=== PATIENT | male | born 1940 | race Caucasian/White ===

== ENCOUNTER 2024-09-08 19:34 | Emergency (ER) | payer OTHER, MEDICARE ==
--- OUTSIDE RECORDS SUMMARY | 2024-09-08 19:37 | XMS REPORT | Clinical Summary ---
Author Name Unknown Organization [facility] Cancer Page Address [address] [place] [address] Care Team Providers Care Paediatric Thoracic Physician Name Role Phone Debbie Chase MD Primary Care Provider [phone] Dinesh Sequeira MD Unavailable + [phone] Bryan Spear MD Unavailable [email or web address] No known active allergies Medications hydrALAZINE (APRESOLINE) 50 mg tablet Take 50 mg by mouth 3 (three) times a day. Active levothyroxine (SYNTHROID, LEVOTHROID) 75 mcg tablet Take 75 mcg by mouth daily. Active losartan-hydrochlorot hiazide (HYZAAR) 100-25 mg per tablet Take 1 tablet by mouth daily. Active simvastatin (ZOCOR) 40 mg tablet Take 40 mg by mouth at bedtime. Active nisoldipine (SULAR) 17 mg 24 hr tablet Take 17 mg by mouth daily. Active allopurinol (ZYLOPRIM) 100 mg tablet Take 100 mg by mouth daily. Active fenofibrate nanocrystallized (TRICOR) 48 mg tablet Take 48 mg by mouth at bedtime. Active OMEPRAZOLE ORAL Take 20.6 mg by mouth daily. Active cholecalciferol, vitamin D3, (VITAMIN D3) 1,000 unit capsule Take 2,000 Units by mouth daily. Active DOCOSAHEXANOIC ACID/EPA (FISH OIL ORAL) Take 1,200 mg by mouth twice daily. Active magnesium oxide (MAOX) 400 mg tablet Take 800 mg by mouth daily. Active aspirin 81 mg EC tablet Take 81 mg by mouth once. Active carvedilol (COREG) 25 mg tablet Take 25 mg by mouth twice daily. 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 01/09/2017 Elevated prostate specific antigen (PSA) 017 Enlarged prostate with LUTS 12/16/2016 Surgical History Surgery Date Site/Laterality Comments APPENDECTOMY COLONOSCOPY HERNIA REPAIR 08/21/1984 - 08/20/1985 left groin PROSTATE SURGERY early TURP CHOLECYSTECTOMY 08/21/2001 - 08/20/2002 UPPER GASTROINTESTINAL ENDOSCOPY CARDIAC SURGERY Murmur repair Medical History Medical History Date Comments Hypertension late Irregular heart beat Hearing loss 2007 from anual check s at work Gallstone 2001 Gall bladder rem ludwig Renal stone 1973 Disorder of prostate Hypothyroidism Family History Medical History Relation Name Comments Diabetes Brother 1 Esophageal cancer Brother 1 Hypertension Brother 2 Diabetes Mother Diabetes Sister 1 Hypertension Sister 2 Relation Name Status Comments Brother 1 Brother 2 Mother Sister 1 Sister 2 Social History Tobacco Use Types Packs/Day Years Used Date Smoking Tobacco: Never Smokeless Tobacco: Never Alcohol Use Standard Drinks/Week Comments Yes 0 (1 standard drink = 0.6 oz pur e alcohol) 0ccasional glass of wine. Sex and Gender Information Value Date Recorded Sex Assigned at Not on file Legal Sex Male 3:50 PM CDT Gender Identity Not on file Sexual Orientation Not on file Obstetrics History Plan of Treatment Health Maintenance Due Date Last Done Comments Pneumococcal Vaccine: 65+ Years (1 of 1 - PCV) 003 COVID-19 Vaccine (2023- season) 2024 Influenza Vaccine (#1) 2024 Insurance MEDICARE PART A AND B AARP-SECONDARY ONLY MEDICARE PART A AND B AARP-SECONDARY [facility] Address[facility] [id number] [place] [address] MEDICARE PART A AND B AARP-SECONDARY ONLY Care Teams Paediatric Thoracic Physician Relationship Specialty Start Date End Date Debbie Chase MD [address] [place] [address] [email or web address] PCP - General Urology 11/24/16 [place] [id number] [address] [id number] [email or web address] PCP - External Referring Urology 11/24/16 [place] [id number] [address] [email or web address] Family Practice 10/19/17
--- NOTE | 2024-09-08 19:57 | EDPHYS ---
Physician Documentation [facility] Name: Nathanael Rodriguez Age: 84 yrs Sex: Male : 1940 Arrival Date: 09/08/2024 Time: 19:34 Bed 20 Private MD: ED Physician Vineet Cook HPI: 09/08 19:55 This 84 yrs old Male presents to ER via Ambulatory with complaints of Toe pain. sb4 19:55 right 4th toe pain x 1 week. denies injury. thinks it is from rubbing together with his sb4 3rd toe. states he has taken tylenol and put antibiotic cream on it without any relief. no fevers. denies any history of diabetes. Historical: - Allergies: 19:49 No Known Allergies; cp4 - PMHx: 19:49 GERD; Hypercholesterolemia; Hypertensive disorder; Hypothyroidism; PVC; cp4 - PSHx: 19:49 Appendectomy; Cholecystectomy; left inguinal hernia repair; Tonsillectomy; TURP; cp4 - Immunization history:: Adult Immunizations up to date. - Infectious Disease History:: Denies. - Social history:: Smoking status: Patient denies any tobacco usage or history of. ROS: 19:55 Constitutional: Negative for fever, chills, and weight loss, sb4 19:55 MS/extremity: Positive for pain, swelling, tenderness, of the plantar aspect of right fourth toe, 19:55 All other systems are negative, Exam: 19:55 Constitutional: This is a well developed, well nourished patient who is awake, alert, sb4 and in no acute distress. Head/Face: Normocephalic, atraumatic. Eyes: Extra-ocular motions intact. Periorbital areas with no swelling, redness, or edema. ENT: Mucous membranes moist. 19:55 Skin: cellulitis, that is moderate, on the plantar aspect of right fourth toe, Vital Signs: 19:44 BP 184 / 96; Pulse 83; Resp 18; Temp 98.2; Pulse Ox 98% ; Weight 74.84 kg; Height 5 ft. cp4 10 in. ; Pain 10/10; 20:36 BP 160 / 88; Pulse 90; Resp 20; Temp 98; Pulse Ox 100% ; kj2 19:44 Body Mass Index 23.67 (74.84 kg, 177.8 cm) cp4 19:44 Pain Scale: Adult cp4 MDM: 19:40 Medical Screening Exam initiated sb4 19:56 Data reviewed: vital signs, nurses notes, and as a result, I will discharge patient. sb4 Counseling: I had a detailed discussion with the patient and/or guardian regarding the historical points, exam findings, and any diagnostic results supporting the discharge/admit diagnosis, the need for outpatient follow up, a radio disc jockey, to return to the emergency department if symptoms worsen or persist or if there are any questions or concerns that arise at home. 09/08 19:54 Order name: Wound Care; Complete Time: 20:38 sb4 09/08 19:54 Order name: Orthopedic shoe; Complete Time: 20:37 sb4 Administered Medications: 20:37 Drug: Cephalexin PO 500 mg PO once Route: PO; kj2 20:37 Follow up: Response: Medication administered at discharge. kj2 Disposition: 09/09 00:25 Co-signature as Attending Physician, Vineet Cook MD I agree with the assessment sp4 and plan of care. I reviewed the patient's care provided by the Advanced Practice Provider and agree with the diagnosis and treatment plan. Disposition Summary: 09/08/24 19:57 Discharge Ordered Notes: Location: Home sb4 Problem: new sb4 Symptoms: have improved sb4 Condition: Stable sb4 Diagnosis - Cellulitis of right toe sb4 Followup: sb4 - With: Natanael Anderson DPM - When: 1 week - Reason: Recheck today's complaints, Re-evaluation by your physician Discharge Instructions: - Discharge Summary Sheet sb4 - Cellulitis, Adult sb4 Forms: - Antibiotic Education sb4 - Patient Portal Instructions sb4 - Leadership Thank You Letter sb4 Prescriptions: - Cephalexin 500 mg Oral Capsule - take 1 capsule ORAL route every 8 hours for 10 days; 30 capsule; Refills: 0, sb4 Product Selection Permitted - Tramadol 50 mg Oral Tablet - take 1 tablet ORAL route every 8 hours as needed; 12 tablet; Refills: 0, sb4 Product Selection Permitted Signatures: Parisa Puente PA-C PA-C sb4 Vineet Cook MD MD sp4 Mary Kate Fitzgerald cp4 India Roberts RN RN kj2
--- NOTE | 2024-09-08 19:57 | ER ---
Nurse's Notes [facility] Name: Nathanael Rodriguez Age: 84 yrs Sex: Male : 1940 Arrival Date: 09/08/2024 Time: 19:34 Bed 20 Private MD: Diagnosis: Cellulitis of right toe Presentation: 09/08 19:44 Chief complaint: Patient states: right fourth toe pain. States he thought he bruised it cp4 but has not gotten any better. Coronavirus screen: Client denies travel out of the [place] in the last 14 days. At this time, the client does not indicate any symptoms associated with coronavirus-19. Ebola Screen: Patient negative for fever greater than or equal to 101.5 degrees Fahrenheit, and additional compatible Ebola Virus Disease symptoms Patient denies exposure to infectious person. Patient denies travel to an Ebola-affected area in the 21 days before illness onset. No symptoms or risks identified at this time. Initial Sepsis Screen: Does the patient meet any 2 criteria? No. Patient's initial sepsis screen is negative. Does the patient have a suspected source of infection? No. Patient's initial sepsis screen is negative. Risk Assessment: Do you want to hurt yourself or someone else? Patient reports no desire to harm self or others. Onset of symptoms is unknown. 19:44 Method Of Arrival: Ambulatory cp4 19:44 Acuity: THEA 4 cp4 Triage Assessment: 19:49 General: Appears in no apparent distress. uncomfortable, Behavior is calm, cooperative, cp4 appropriate for age. Pain: Complains of pain in right foot. Historical: - Allergies: 19:49 No Known Allergies; cp4 - PMHx: 19:49 GERD; Hypercholesterolemia; Hypertensive disorder; Hypothyroidism; PVC; cp4 - PSHx: 19:49 Appendectomy; Cholecystectomy; left inguinal hernia repair; Tonsillectomy; TURP; cp4 - Immunization history:: Adult Immunizations up to date. - Infectious Disease History:: Denies. - Social history:: Smoking status: Patient denies any tobacco usage or history of. Screenin:06 [facility] ED Fall Risk Assessment (Adult) History of falling in the last 3 months, kj2 including since admission No falls in past 3 months (0 pts) Confusion or Disorientation No (0 pts) Intoxicated or Sedated No (0 pts) Impaired Gait No (0 pts) Mobility Assist Device Used No (0 pt) Altered Elimination No (0 pt) Score/Fall Risk Level 0 - 2 = Low Risk Maintained a safe environment, Hourly rounding (assess needs \T\ fall precautionary measures) done. Abuse screen: Denies threats or abuse. Denies injuries from another. Nutritional screening: No deficits noted. Tuberculosis screening: No symptoms or risk factors identified. Assessment: 20:05 General: Appears in no apparent distress. uncomfortable, Behavior is calm, cooperative. kj2 Pain: Complains of pain in plantar aspect of right fourth toe and right foot Pain currently is 6 out of 10 on a pain scale. Neuro: Level of Consciousness is awake, alert, obeys commands, Oriented to person, place, time, situation. Cardiovascular: Patient's skin is warm and dry. Respiratory: Airway is patent Respiratory effort is even, unlabored. GI: No signs and/or symptoms were reported involving the gastrointestinal system. : No signs and/or symptoms were reported regarding the genitourinary system. 20:36 Reassessment: Patient appears in no apparent distress at this time. Patient and/or kj2 family updated on plan of care and expected duration. Pain level reassessed. Patient is alert, oriented x 3, equal unlabored respirations, skin warm/dry/pink. Vital Signs: 19:44 BP 184 / 96; Pulse 83; Resp 18; Temp 98.2; Pulse Ox 98% ; Weight 74.84 kg; Height 5 ft. cp4 10 in. ; Pain 10/10; 20:36 BP 160 / 88; Pulse 90; Resp 20; Temp 98; Pulse Ox 100% ; kj2 19:44 Body Mass Index 23.67 (74.84 kg, 177.8 cm) cp4 19:44 Pain Scale: Adult cp4 ED Course: 19:38 Patient arrived in ED. gm2 19:39 Parisa Puente PA-C is PHCP. sb4 19:39 Vineet Cook MD is Attending Physician. sb4 19:49 Triage completed. cp4 19:49 Arm band placed on right wrist. Patient placed in waiting room. cp4 19:57 Natanael Anderson DPM is Referral Physician. sb4 20:04 India Roberts RN is Primary Nurse. kj2 20:06 Patient has correct armband on for positive identification. Bed in low position. Call kj2 light in reach. Provided Education on: call light. 20:07 No provider procedures requiring assistance completed. kj2 20:36 Patient did not have IV access during this emergency room visit. kj2 Administered Medications: 20:37 Drug: Cephalexin PO 500 mg PO once Route: PO; kj2 20:37 Follow up: Response: Medication administered at discharge. kj2 Medication: 20:06 VIS not applicable for this client. kj2 Outcome: 19:57 Discharge ordered by . sb4 20:36 Discharged to home ambulatory, kj2 20:36 Condition: stable 20:36 Discharge instructions given to patient, Instructed on discharge instructions, follow up and referral plans. medication usage, Demonstrated understanding of instructions, follow-up care, medications, Prescriptions given X 2, 20:38 Patient left the ED. kj2 Signatures: Parisa Puente PAHenriC PARhonda suarez4 Mary Kate Fitzgerald cp4 Blessing Luevano gm2 India Roberts, RN RN kj2
[2024-09-08] MEDS ORDERED: CEPHALEXIN 250 MG CAP ONE (20:10)
[2024-09-08 22:14] VITALS: BP 160/88; TEMP 98; O2SAT 100
== END 2024-09-08 20:38 | disposition home or self-care (01) ==
LOC: ER 19:34
DX: L03.031 Cellulitis of right toe (principal); I10 Essential (primary) hypertension; E03.9 Hypothyroidism, unspecified; E78.00 Pure hypercholesterolemia, unspecified
CPT/HCPCS: 99283